=== PATIENT | male | born 1960 | race Caucasian/White ===

== ENCOUNTER 2024-11-21 15:05 | Day surgery (SDC) | payer OTHER ==
[2024-11-21] MEDS ORDERED: methylPREDNISolone acetate IM ONE (15:06)
[2024-11-21] MEDS ORDERED: LIDOCAINE HCL 1% 50 MG/5 ML VL IJ ONE (15:06)
[2024-11-21] MEDS ORDERED: Sodium Chloride 0.9(Preservative Free) 10 ML IJ ONE (15:06)
[2024-11-21] MEDS ORDERED: Lactated Ringers 1,000 ML IV ONE (17:52)
--- NOTE | 2024-11-21 19:36 | XRAY ---
Indication: Lumbar BEAU. Intraoperative fluoroscopy provided for 21 seconds. 3 digital spot images submitted for interpretation demonstrates posterior needle tip projecting posterior to lumbosacral junction. Small amount of contrast injected for needle tip placement. Correlate with intraoperative findings/report.
--- NOTE | 2024-11-22 08:47 | XRAY ---
21 seconds of fluoroscopy were used in surgery for a lumbar BEAU.
== END 2024-11-21 18:10 | disposition home or self-care (01) ==
LOC: SDC-PAIN 15:05
PROVIDERS: ATTEND Psychiatry & Neurology Pain Medicine
DX: M54.16 Radiculopathy, lumbar region (principal)